=== PATIENT | male | born 1965 | race Caucasian/White ===

== ENCOUNTER 2016-08-28 09:09 | Inpatient (IN) | payer OTHER ==
[~2016-08-28] VITALS: Ht 175.3 cm; Wt 72.6 kg
--- NOTE | ~2016-08-28 | EXE ---
[facility] [address] [place] [address] STRESS ECHOCARDIOGRAM Name: MARIANOHERNÁN TOLLIVER Room #: 422-P [facility] IN ..#: [id number] Admission: 08/28/16 Attend Phys: Chin Peacock MD Discharge: Date of : 61 Date of Service: 08/28/16 1450 Report #: [id number] THIS REPORT FOR: //name// APPROVED REPORT Exam: Stress Echocardiogram Indication: Chest pain , Dyspnea Patient Location: Echo lab Stress Nurse: Carol Goetz RN Room #: 422 Status: routine HR: 81 bpm Medical History Medical History: HTN, Hyperlipidemia, Smoking Cardiac Risk Factors: HTN, Hyperlipidemia, Smoking, FHX of CAD Exercise History: Indeterminate Procedure The patient underwent an Exercise Stress Test using the Jorden Protocol. Blood pressure, heart rate, and EKG were monitored. An Echocardiogram was performed by manufacturing technician in four stages in quad fashion. At peak stress, four selected images were obtained and placed side by side with resting images for comparison. Stress Test Details Stress Test: Exercise stress testing was performed using a Jorden protocol. HR Resting HR: 81 bpm Max Heart Rate (APMHR): 167 bpm Max HR Achieved: 141 bpm Target HR (85% APMHR): 141 bpm % of APMHR: 84 Recovery HR: 88 bpm HR response to stress: Normal HR response to stress BP Resting BP: 126/86 mmHg Max BP: 164/80 mmHg Recovery BP: 130/70 mmHg ECG Resting ECG: Sinus Rhythm Stress ECG: Sinus Rhythm [facility] [address] [place] [address] STRESS ECHOCARDIOGRAM Name: MARIANOHERNÁN TOLLIVER Room #: 422-P [facility] IN [facility]#: [id number] Admission: 08/28/16 Attend Phys: Chin Peacock MD Discharge: Date of : 61 Date of Service: 08/28/16 1450 Report #: [id number] Recovery ECG: Sinus Rhythm Clinical Reason for Termination: Dyspnea Stress Symptoms: Dyspnea Exercise duration: 9 min 40 sec Highest Stage Achieved: Stage 4: 4.2 mph at 16% grade. Exercise capacity: 11.7 METs Overall Exercise Capacity for Age: Normal Pre-Stress Echo The resting Echocardiogram showed normal left ventricular contractility with an estimated Ejection Fraction of about >55%. Normal wall motion in all segments on baseline images. Post-Stress Echo The stress Echocardiogram showed normal left ventricular contractility with an estimated Ejection Fraction of about 65-70%. Normal augmentation of wall motion in all segments on post stress images. Clinical Normal augmentation of myocardial wall segments using a 17 segment model. No clinical or ECG evidence for ischemia. Conclusion Clinical Response: Non-ischemic Exercise Capacity: Average Stress ECG Response: Non-ischemic Stress Echo Images: Non-ischemic 1. LOW RISK STUDY No prior study available for comparison. Other Information Study Quality: Good <Conclusion> 1. LOW RISK STUDY <ELECTRONICALLY SIGNED> By: Anuj Maciel MD 08/28/16 1450 1450 1450 Anuj Maciel MD /INF
--- NOTE | ~2016-08-28 | EKG ---
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
--- NOTE | ~2016-08-28 | CATHLAB ---
[facility] [address] [place] [address] INVASIVE PROCEDURE REPORT Name: MARIANOHERNÁN TOLLIVER Room #: 422-P [facility] IN ..#: [id number] Admission: 08/28/16 Attend Phys: Paramjit Powell, Discharge: 09/01/16 Date of : 61 Date of Service: 08/31/16 0838 Report #: [id number] THIS REPORT FOR: //name// CC: MARIA ANTONIA physician/PCP Chin Peacock PROCEDURE: Left heart coronary angiography. INDICATIONS: Chest pain. DESCRIPTION OF PROCEDURE: The potential benefits and risks of the procedure were discussed at length with the patient who understood. Full written and informed consent was obtained. The patient was brought into the catheterization suite where his right groin was prepped and draped in a sterile fashion. He was sedated with intravenous Versed. 1% Xylocaine was used as local anesthetic. A 6-Kosovan sheath was placed in the right femoral artery by the modified Seldinger technique. Left heart catheterization was performed with a 6-Kosovan angled pigtail catheter. A single plain ventriculogram was performed in the HERRERA view. Pullback gradients were measured across the aortic valve. Selective coronary angiography was performed with a 6-Kosovan left and right 4-cm Naima coronary catheter. All diagnostic catheters were removed. A hand injection was performed to the right groin sheath with placement of a Mynx device upon removal of the sheath. The patient remained in excellent condition at the conclusion of the procedure with good right groin hemostasis and intact distal pulses. RESULTS: LEFT HEART HEMODYNAMICS: 1. Left ventricular systolic pressure 140. 2. Left ventricular end diastolic pressure of 12. 3. Aortic valve, no gradient was present on pullback across the aortic valve, central aortic pressure 140/72. ANGIOGRAPHY: LEFT VENTRICULOGRAM: Ventriculography demonstrated normal global and regional left ventricular systolic function, mitral regurgitation was absent. The ejection fraction was estimated at 65%. SELECTIVE CORONARY ANGIOGRAPHY: 1. The left main: Left main was normal. 2. Left anterior descending: The left anterior descending was a moderate size vessel that extended to the distal anterior wall. The LAD gave rise to several small diagonal branches, all of which were angiographically normal. There was a moderate size ramus branch that was angiographically normal. 3. The circumflex was large, but nondominant and gave rise to 2 marginal branches, circumflex and these marginal branches were normal. 4. The right coronary: The right coronary was dominant and normal throughout its course including a large posterior descending and posterolateral branch. [facility] [address] [place] [address] INVASIVE PROCEDURE REPORT Name: HERNÁN QUINTANA Room #: 422-P [facility]..#: [id number] Admission: 08/28/16 Attend Phys: Paramjit Powell, Discharge: 09/01/16 Date of : 61 Date of Service: 08/31/16 0838 Report #: [id number] SUMMARY: 1. Normal global and regional left ventricular systolic function, mitral regurgitation was absent, ejection fraction 65%. 2. Normal left main. 3. Normal coronary vasculature, this was a right coronary dominant circulation. <ELECTRONICALLY SIGNED> By: Olman Dubois MD, FACC 09/03/16 1641 0838 1358 Olman Dubois MD, FACC /nt
[2016-08-28 09:18] VITALS: BP 125/82
[2016-08-28 09:39] LABS: BASOPHILS 0.9 % (0.0-2.0); EOSINOPHILS 1.5 % (0.0-3.0); HEMATOCRIT 40.4 % (42.0-52.0); HEMOGLOBIN 13.6 gm/dL (14.0-18.0); LYMPHOCYTES 22.4 % (24.0-44.0); MCH 30.1 pg (26.0-34.0); MCHC 33.7 g/dL (28.0-37.0); MCV 89.4 fL (80.0-100.0); MONOCYTES 8.1 % (1.0-8.0); PLATELET COUNT 211 thou/uL (150-400); POLYS 67.1 % (36.0-66.0); RBC 4.52 mil/uL (4.50-6.00); RDW 14.9 % (10.5-14.5); WBC 7.5 thou/uL (4.0-11.0)
[2016-08-28 09:41] LABS: MANUAL DIFF NO
[2016-08-28 09:47] LABS: ANION GAP 8 mmol/L (7-16); BUN 15 mg/dL (7-18); CALCIUM 9.1 mg/dL (8.5-10.1); CHLORIDE 104 mmol/L (98-107); CO2 28 mmol/L (21-32); CREATININE 0.9 mg/dL (0.7-1.3); GLUCOSE 101 mg/dL (74-106); POTASSIUM 3.9 mmol/L (3.5-5.1); SODIUM 140 mmol/L (136-145)
[2016-08-28 09:55] LABS: TROPONIN-I < 0.04 ng/mL (<0.04-0.07)
[2016-08-28 10:28] VITALS: BP 103/61
[2016-08-28 10:55] VITALS: BP 111/71
[2016-08-28 11:43] VITALS: BP 111/71
[2016-08-28 12:43] LABS: CHOLESTEROL 196 mg/dL (<200); HDL CHOLESTEROL 45 mg/dL (>40); LDL CHOLESTEROL 131 mg/dL (<100); TC:HDL 4.4 Ratio (Not establshd); TRIGLYCERIDE 102 mg/dL (<150); VLDL 20 mg/dL (<40)
[2016-08-28 15:32] VITALS: BP 118/70
[2016-08-28 20:00] VITALS: BP 114/77
[2016-08-29 00:31] VITALS: BP 116/78
[2016-08-29 05:18] LABS: HEMATOCRIT 43.3 % (42.0-52.0); HEMOGLOBIN 14.3 gm/dL (14.0-18.0); MCH 29.5 pg (26.0-34.0); MCHC 33.1 g/dL (28.0-37.0); MCV 89.1 fL (80.0-100.0); RBC 4.86 mil/uL (4.50-6.00); RDW 14.9 % (10.5-14.5); WBC 6.7 thou/uL (4.0-11.0)
[2016-08-29 05:31] LABS: CALCIUM 9.1 mg/dL (8.5-10.1); CREATININE 0.8 mg/dL (0.7-1.3); POTASSIUM 4.2 mmol/L (3.5-5.1)
[2016-08-29 11:35] VITALS: BP 107/72
[2016-08-29 17:53] VITALS: BP 115/76
[2016-08-29 19:56] VITALS: BP 116/78
[2016-08-30 03:45] VITALS: BP 107/78
[2016-08-30 08:00] VITALS: BP 112/75
[2016-08-30 16:00] VITALS: BP 111/80
[2016-08-30 19:53] VITALS: BP 105/74
[2016-08-31 05:00] VITALS: BP 119/84
[2016-08-31 05:05] LABS: CALCIUM 8.8 mg/dL (8.5-10.1); CREATININE 0.8 mg/dL (0.7-1.3); POTASSIUM 4.1 mmol/L (3.5-5.1)
[2016-08-31 10:52] VITALS: BP 124/88
[2016-08-31 16:17] VITALS: BP 119/75
[2016-08-31 19:47] VITALS: BP 116/73
[2016-09-01 00:18] VITALS: BP 106/71
[2016-09-01 03:48] VITALS: BP 100/69
[2016-09-01 07:12] VITALS: BP 122/80
[2016-09-01 10:39] VITALS: BP 122/80
== END 2016-09-01 20:58 | disposition home or self-care (01) | DRG 287 ==
LOC: ER 09:09 → EROBS 10:07 → 4E 10:07
PROVIDERS: Emergency Medicine; Hospitalist; Internal Medicine Endocrinology, Diabetes & Metabolism; Nurse Practitioner Adult Health
PROC: B2151ZZ Fluoroscopy of Left Heart using Low Osmolar Contrast (ICD-10-PCS; principal; 2016-08-31)
PROC: 4A023N7 Measurement of Cardiac Sampling and Pressure, Left Heart, Percutaneous Approach (ICD-10-PCS; principal; 2016-08-31)
PROC: B2111ZZ Fluoroscopy of Multiple Coronary Arteries using Low Osmolar Contrast (ICD-10-PCS; principal; 2016-08-31)
DX: I20.0 Unstable angina (principal); E78.5 Hyperlipidemia, unspecified; F17.210 Nicotine dependence, cigarettes, uncomplicated; I10 Essential (primary) hypertension; E78.00 Pure hypercholesterolemia, unspecified; Z71.6 Tobacco abuse counseling; Z79.899 Other long term (current) drug therapy; Z82.49 Family history of ischemic heart disease and other diseases of the circulatory system
CPT/HCPCS: 10183

== ENCOUNTER 2018-06-10 16:04 | Emergency (ER) | payer OTHER ==
[~2018-06-10] VITALS: Ht 175.3 cm; Wt 74.8 kg
[~2018-06-10 16:04] MED LIST: KEFLEX500 M1 PO
[2018-06-10] MEDS ORDERED: IBUPROFEN 400400 M2 PO (16:38)
[2018-06-10 17:12] VITALS: BP 119/79
== END 2018-06-10 17:05 | disposition home or self-care (01) ==
LOC: ER 16:04
DX: M25.572 Pain in left ankle and joints of left foot (principal); I10 Essential (primary) hypertension; E78.5 Hyperlipidemia, unspecified; F17.210 Nicotine dependence, cigarettes, uncomplicated

== ENCOUNTER 2018-09-12 09:22 | Emergency (ER) | payer OTHER ==
[~2018-09-12] VITALS: Ht 175.3 cm; Wt 72.6 kg
[~2018-09-12 09:22] MED LIST changes: +IBUPROFEN 400400 M2 PO
[2018-09-12 10:18] LABS: ABSOLUTE NEUTROPHILS 8.8 thou/uL (1.4-8.2); BASOPHILS 0.8 % (0.0-2.0); EOSINOPHILS 0.5 % (0.0-3.0); HEMATOCRIT 41.1 % (42.0-52.0); LYMPHOCYTES 12.3 % (24.0-44.0); MCH 29.6 pg (26.0-34.0); MCHC 34.1 g/dL (28.0-37.0); MCV 86.7 fL (80.0-100.0); MONOCYTES 5.8 % (1.0-8.0); PLATELET COUNT 338 thou/uL (150-400); POLYS 80.6 % (36.0-66.0); RBC 4.74 mil/uL (4.50-6.00); RDW 14.2 % (10.5-14.5); WBC 10.9 thou/uL (4.0-11.0)
[2018-09-12 10:26] LABS: CALCIUM 9.5 mg/dL (8.5-10.1); POTASSIUM 3.4 mmol/L (3.5-5.1)
[2018-09-12] MEDS ORDERED: BACTRIM DS TAB1 EACH PO (12:41)
[2018-09-12] MEDS ORDERED: NORCO 5-325 TA1 EAC1 PO (12:47)
[2018-09-12 13:08] VITALS: BP 116/75
== END 2018-09-12 13:05 | disposition home or self-care (01) ==
LOC: ER 09:22
PROVIDERS: Emergency Medicine
DX: L03.012 Cellulitis of left finger (principal); I10 Essential (primary) hypertension; E78.5 Hyperlipidemia, unspecified; F17.210 Nicotine dependence, cigarettes, uncomplicated